=== PATIENT | female | born 1970 | race Caucasian/White ===

== ENCOUNTER → 2018-09-29 | Outpatient (CLI) | payer BC ==
--- NOTE | 2018-09-30 10:11 | RADIOLOGY REPORT (SQ) ---
EXAM DESCRIPTION: CT CERVICAL SPINE WITHOUT COMPLETED DATE/TIME: 09/29/2018 6:45 pm REASON FOR STUDY: M54.2 CERVICALGIA M25.512 PAIN IN LEFT SHOULDER M54.2 CERVICALGIA COMPARISON: None. TECHNIQUE: Axial images acquired through the cervical spine without intravenous contrast. Images re viewed with lung, soft tissue and bone windows. Reconstructed coronal and sagittal MPR images review ed. Images stored on PACS. All CT scanners at this facility use dose modulation, iterative reconstruction, and/or weight based d osing when appropriate to reduce radiation dose to as low as reasonably achievable (ALARA). [facility]: Dose Right [facility]: CareDose [facility]: Dose Right [facility]: Teradose 4D [facility]: Quill Content RADIATION DOSE: CT Rad equipment meets quality standard of care and radiation dose reduction techniq ues were employed. CTDIvol: 21.2 mGy. DLP: 521 mGy-cm. mGy. LIMITATIONS: None. FINDINGS: ALIGNMENT: Anatomic. MINERALIZATION: Normal. VERTEBRAL BODIES: No fractures or dislocation. DISCS: At the C5-6 level, patient is post discectomy and fusion. There are incorporated bone graft f ragments at the disc space, and anterior fixation plate with anchoring screws in the C5 and C6 verteb ral bodies. There is minimal central and left paracentral disc bulge and bony spurring without signi ficant central canal or bony foraminal stenosis. FACETS, LATERAL MASSES, POSTERIOR ELEMENTS: No fractures. No dislocation. No acute findings. HARDWARE: Fusion hardware at C5-6 VISUALIZED RIBS: No fractures. LUNG APICES AND SOFT TISSUES: No significant or acute findings. OTHER: No other significant finding. IMPRESSION: Post fusion at C5-6 without significant central or foraminal encroachment at this level. The other cervical disc levels are unremarkable by CT. TECHNICAL DOCUMENTATION: JOB ID: [id number] Quality ID # [id number]: Final reports with documentation of one or more dose reduction techniques (e.g., Au tomated exposure control, adjustment of the mA and/or kV according to patient size, use of iterative reconstruction technique) 2010 [employer]- All Rights Reserved Reading location - IP/workstation name: [email or web address]
--- NOTE | 2018-09-30 10:23 | RADIOLOGY REPORT (SQ) ---
EXAM DESCRIPTION: MRI LT UPPER JOINT WITHOUT COMPLETED DATE/TIME: 09/29/2018 6:49 pm REASON FOR STUDY: M25.512 PAIN IN LEFT SHOULDER M25.512 PAIN IN LEFT SHOULDER M54.2 CERVICALGIA COMPARISON: None. TECHNIQUE: Left shoulder images acquired and stored on PACS. Multiplanar imaging to include fat sens itive sequences such as T1, water sensitive sequences such as FST2/STIR, cartilage sensitive sequence s such as FSPD/gradient-echo sequences. LIMITATIONS: None. FINDINGS: BONE MARROW AND CORTEX: No worrisome bone lesions or marrow replacement. No occult fractur es. JOINT OR BURSAL EFFUSION: No significant glenohumeral joint effusion. Trace fluid in the subacromial / subdeltoid bursa GLENO-HUMERAL ARTICULATION: Normal articulation. No subluxation. No cystic change. No osteophytes or cartilage loss. ACROMION AND AC JOINT: Type 2 acromion with bulky acromioclavicular joint hypertrophy, narrowing of the subacromial space, and trace fluid in the subacromial/subdeltoid bursa best shown on sagittal ser ies 5, images 7-10. ROTATOR CUFF AND INTERVAL: There is high signal along the undersurface of the supraspinatus tendon at the level of the rotator interval on sagittal images 8-11. Rotator interval support structures appe ar intact on sagittal images 10-13. There is also very mild distal supraspinatus tendinopathy at its anterior attachment to the greater tuberosity best shown on coronal images 9-11. Infraspinatus is i ntact. subscapularis is intact. LABRUM AND BICEPS LABRAL COMPLEX: Intra-articular long head biceps tendon is high signal at its labr al attachment with a small para labral tear. No paralabral cyst. These findings are best shown on c oronal images 7-9 and sagittal images 8 and 9. REMAINDER OF LABRUM AND IGHL : No gross tear or paralabral cyst formation. Labral evaluation is less than optimal without joint distention. No thickening of IGHL to suggest adhesive capsulitis. PERIARTICULAR AND ADJACENT SOFT TISSUES: No masses or abnormal nodes. OTHER: No other significant finding. IMPRESSION: Acromioclavicular joint hypertrophy with narrowing of the subacromial space Tendinopathy of the distal most attachment supraspinatus tendon, and along the or proximal tendon abu tting the rotator interval Intra-articular long head biceps tendinopathy with small superior labral tear TECHNICAL DOCUMENTATION: JOB ID: [id number] [employer]- All Rights Reserved Reading location - IP/workstation name: [email or web address]
== END ==
LOC: RAD 17:49
PROVIDERS: ATTEND Orthopaedic Surgery
DX: M25.512 Pain in left shoulder (principal); M54.2 Cervicalgia
CPT/HCPCS: 72125